=== PATIENT | male | born 1970 | race American Indian/Alaskan Native ===

== ENCOUNTER 2018-08-07 05:27 | Emergency (ER) | payer OTHER ==
[2018-08-07] MEDS ORDERED: TYLENOL ONE (05:42)
[2018-08-07 05:50] VITALS: BP 155/84
--- NOTE | 2018-08-07 06:48 | XRay Report ---
PROCEDURE: XR KNEE 1-2V LT TECHNIQUE: AP and lateral views left knee HISTORY: left knee pain COMPARISONS: None FINDINGS: Mild osteoarthrosis without fracture, gross malalignment or definite effusion IMPRESSION: Mild left knee osteoarthrosis without definite acute finding This document is electronically signed by Mitchell Can MD., August 07 2018 06:46:27 AM ET
--- NOTE | 2018-08-07 06:50 | XRay Report ---
PROCEDURE: XR SPINE LUMBOSACRAL 2-3V TECHNIQUE: 3 views lumbar spine HISTORY: lower back pain COMPARISONS: None FINDINGS: Intact lumbar lordosis. Vertebral body heights are preserved. No listhesis, spondylolysis or other fr acture. Mild intervertebral disc space narrowing with associated endplate spondylosis at L5-S1 greate r than L4-L5. IMPRESSION: Mild sequela of lower lumbar disc degeneration without acute finding This document is electronically signed by Mitchell Can MD., August 07 2018 06:49:06 AM ET
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
== END 2018-08-07 09:33 | disposition home or self-care (01) ==
LOC: ED 05:27
DX: S39.012A Strain of muscle, fascia and tendon of lower back, initial encounter (principal); S86.912A Strain of unspecified muscle(s) and tendon(s) at lower leg level, left leg, initial encounter; E66.01 Morbid (severe) obesity due to excess calories; V89.2XXA Person injured in unspecified motor-vehicle accident, traffic, initial encounter; Y93.89 Activity, other specified; Y92.488 Other paved roadways as the place of occurrence of the external cause; Y99.8 Other external cause status
CPT/HCPCS: 72100; 99283